=== PATIENT | female | born 2000 | race Two or more races ===

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

== ENCOUNTER 2023-10-03 13:37 | Emergency (ER) | payer SELFPAY ==
[~2023-10-03] VITALS: Ht 160 cm; Wt 81.2 kg
[2023-10-03] MEDS: KETOROLAC TROMETHAMINE 15 MG/ML VIAL IV ONE (15:00)
[2023-10-03] MEDS: ONDANSETRON HCL/PF 4 MG/2 ML VIAL IVP ONE (15:00)
[2023-10-03] MEDS ORDERED: KETOROLAC TROMETHAMINE 15 MG/ML VIAL ONE (15:05)
[2023-10-03] MEDS ORDERED: ONDANSETRON HCL/PF 4 MG/2 ML VIAL ONE (15:05)
[2023-10-03 15:15] LABS: BASOPHILS % (AUTO) 0.3 % (0.0-2.0); EOSINOPHILS # (AUTO) 0.1 K/uL (0.0-0.7); EOSINOPHILS % (AUTO) 0.6 % (0.0-6.0); HEMATOCRIT 38 % (33-45); HEMOGLOBIN 12.5 g/dL (11.5-14.8); LYMPHOCYTES # (AUTO) 1.4 K/uL (0.8-4.8); LYMPHOCYTES % (AUTO) 9.1 % (20.0-44.0); MEAN CORPUSCULAR HEMOGLOBIN 24 PG (26.0-33.0); MEAN CORPUSCULAR HGB CONC 33 g/dl (31.0-36.0); MEAN CORPUSCULAR VOLUME 72 fL (82-100); MONOCYTES # (AUTO) 1.2 K/uL (0.1-1.30); MONOCYTES % (AUTO) 7.8 % (2.0-12.0); NEUTROPHILS # (AUTO) 12.3 K/uL (1.8-8.9); NEUTROPHILS % (AUTO) 82.2 % (43.0-81.0); PLATELET COUNT (AUTO) 358 K/uL (150-450); RED BLOOD CELL COUNT(AUTO) 5.26 MIL/uL (4.0-5.2); RED CELL DISTRIBUTION WIDTH 13.9 % (11.5-15.0); WHITE BLOOD COUNT (AUTO) 14.9 K/uL (4.3-11.0)
[2023-10-03 15:30] LABS: ALBUMIN 3.2 g/dL (3.4-5.0); BILIRUBIN,DIRECT 0.1 mg/dL (0.0-0.2); BILIRUBIN,TOTAL 0.6 mg/dL (0.2-1.0); CALCIUM, SERUM 9.8 mg/dL (8.5-10.1); CREATININE 1.4 mg/dL (0.6-1.3); POTASSIUM 4.2 mmol/L (3.5-5.1); TOTAL PROTEIN, SERUM 7.3 g/dL (6.4-8.2)
[2023-10-03 15:51] LABS: APPEARANCE,URINE SLIGHTLY CLOUDY (CLEAR); PREGNANCY TEST URINE QUAL NEGATIVE (NEGATIVE)
[2023-10-03 15:52] LABS: COLOR,URINE RED (YELLOW)
[2023-10-03] MEDS: IV NS 0.9% 1,000 ML BAG IV ONE (15:52)
[2023-10-03 15:57] LABS: BACTERIA,URINE 1+ /HPF (None Seen); RBC,URINE 81-100 /HPF (0-2)
[2023-10-03 17:05] LABS: ANISOCYTOSIS 1+; BAND % (MANUAL) 1 % (0.0-5.0); EOSINOPHILS % (MANUAL) 2 % (0-4); LYMPHOCYTES % (MANUAL) 11 % (16-48); MONOCYTES % (MANUAL) 9 % (0-11.0); NEUTROPHILS % (MANUAL) 77 (42-76); PLATELET ESTIMATE ADEQUATE
[2023-10-03] MEDS ORDERED: CIPR-262 PO (18:01)
[2023-10-03] MEDS ORDERED: CIPROFLOXACIN HCL 500 MG TABLET ONE (18:53)
[2023-10-03] MEDS: CIPROFLOXACIN HCL 500 MG TABLET PO ONE (18:58)
[2023-10-03 19:12] VITALS: BP 124/68; TEMP 98.8; O2SAT 98
== END 2023-10-03 19:13 | disposition home or self-care (01) ==
LOC: ER 13:37
DX: N39.0 Urinary tract infection, site not specified (principal); R10.2 Pelvic and perineal pain
CPT/HCPCS: 99285; 74176; 96374; 96361; 96375; 85025; 80048; 87086; 83690; 80076; 84703; 81001; 36415; 84702; 85007; J2405; J7030; J1885

== ENCOUNTER 2023-11-15 12:38 | Emergency (ER) | payer SELFPAY ==
[~2023-11-15 12:38] MED LIST: CIPR-262 PO
== END 2023-11-15 13:18 | disposition left against medical advice (07) ==
LOC: ER 12:41
DX: N93.9 Abnormal uterine and vaginal bleeding, unspecified (principal); Z53.21 Procedure and treatment not carried out due to patient leaving prior to being seen by health care provider

== ENCOUNTER 2024-09-07 11:29 | Emergency (ER) | payer OTHER ==
[~2024-09-07] VITALS: Ht 160 cm; Wt 81.6 kg
[2024-09-07] MEDS ORDERED: ACETAMINOPHEN 325 MG TABLET ONE (12:00)
[2024-09-07 12:08] LABS: PREGNANCY TEST URINE QUAL NEGATIVE (NEGATIVE)
[2024-09-07 12:09] LABS: APPEARANCE,URINE CLEAR (CLEAR); BILIRUBIN,URINE Negative (NEGATIVE); BLOOD, URINE Negative Ery/uL (NEGATIVE); COLOR,URINE YELLOW (YELLOW); KETONES,URINE Negative (NEGATIVE); LEUKOCYTE ESTERASE ,URINE Negative (NEGATIVE); NITRITE, URINE NEGATIVE (NEGATIVE); PROTEIN,URINE Negative (NEGATIVE); UGLUCOSE Negative (NEGATIVE); UROBILINOGEN,URINE 0.2 EU/dL (0.2)
[2024-09-07] MEDS: IV NS 0.9% 1,000 ML BAG IV ONE (12:15)
[2024-09-07] MEDS: ACETAMINOPHEN 325 MG TABLET PO ONE (12:16)
[2024-09-07] MEDS ORDERED: ONDANSETRON HCL/PF 4 MG/2 ML VIAL ONE (12:17)
[2024-09-07 12:20] LABS: BASOPHILS # (AUTO) 0.1 K/uL (0.0-0.2); BASOPHILS % (AUTO) 0.5 % (0.0-2.0); HEMATOCRIT 38 % (33-45); HEMOGLOBIN 12.3 g/dL (11.5-14.8); LYMPHOCYTES # (AUTO) 1.5 K/uL (0.8-4.8); LYMPHOCYTES % (AUTO) 6.6 % (20.0-44.0); MEAN CORPUSCULAR HEMOGLOBIN 23 PG (26.0-33.0); MEAN CORPUSCULAR HGB CONC 32 g/dl (31.0-36.0); MEAN CORPUSCULAR VOLUME 73 fL (82-100); MONOCYTES # (AUTO) 0.8 K/uL (0.1-1.30); MONOCYTES % (AUTO) 3.5 % (2.0-12.0); NEUTROPHILS # (AUTO) 20.1 K/uL (1.8-8.9); NEUTROPHILS % (AUTO) 89.4 % (43.0-81.0); PLATELET COUNT (AUTO) 372 K/uL (150-450); RED BLOOD CELL COUNT(AUTO) 5.24 MIL/uL (4.0-5.2); RED CELL DISTRIBUTION WIDTH 15.3 % (11.5-15.0); WHITE BLOOD COUNT (AUTO) 22.5 K/uL (4.3-11.0)
[2024-09-07] MEDS: ONDANSETRON HCL/PF 4 MG/2 ML VIAL IV ONE (12:20)
[2024-09-07] MEDS ORDERED: KETOROLAC TROMETHAMINE 15 MG/ML VIAL ONE (12:22)
[2024-09-07 12:23] LABS: CREATININE 0.8 mg/dL (0.6-1.3); POTASSIUM 4.3 mmol/L (3.5-5.1)
[2024-09-07] MEDS: KETOROLAC TROMETHAMINE 15 MG/ML VIAL IV ONE (12:24)
[2024-09-07 14:11] VITALS: BP 116/74; TEMP 98.4; O2SAT 98
[2024-09-07 14:20] LABS: LYMPHOCYTES % (MANUAL) 4 % (16-48); MONOCYTES % (MANUAL) 4 % (0-11.0); NEUTROPHILS % (MANUAL) 92 (42-76); PLATELET ESTIMATE ADEQUATE
== END 2024-09-07 14:11 | disposition home or self-care (01) ==
LOC: ER 11:31
DX: M79.10 Myalgia, unspecified site (principal); J02.9 Acute pharyngitis, unspecified; R11.0 Nausea; R51.9 Headache, unspecified; Z20.822 Contact with and (suspected) exposure to COVID-19; Z79.899 Other long term (current) drug therapy
CPT/HCPCS: 99284; 96374; 71045; 96361; 96375; 87426; 87804 ×2; 85025; 80048; 84703; 81003; 36415; J1885; J2405; J7030